=== PATIENT | female | born 1995 | race Hispanic/Latino ===

== ENCOUNTER 2018-04-08 08:43 | Emergency (ER) | payer OTHER, SELFPAY ==
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
--- NOTE | 2018-04-08 10:01 | RAD REPORT ---
EXAM DESCRIPTION: US - Abdomen Exam Limited - 04/08/2018 9:07 am CLINICAL HISTORY: Abdominal pain. COMPARISON: None. FINDINGS: Limited examination was performed to assess for ascites. No ascites is seen within the abdomen/pelvis IMPRESSION: No ascites is seen. This does not exclude an intraabdominal/pelvic injury
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
== END 2018-04-08 10:02 | disposition home or self-care (01) ==
LOC: ER 08:43
DX: O26.899 Other specified pregnancy related conditions, unspecified trimester (principal); S39.91XA Unspecified injury of abdomen, initial encounter; V49.40XA Driver injured in collision with unspecified motor vehicles in traffic accident, initial encounter; Z3A.00 Weeks of gestation of pregnancy not specified
CPT/HCPCS: 76705; 76815; 99284

== ENCOUNTER 2018-06-16 04:34 | Inpatient (IN) | payer OTHER, SELFPAY ==
--- OUTSIDE RECORDS SUMMARY | 2018-06-16 04:36 | XMS REPORT ---
:1995 [facility] Address [address] [place] [address] [address] [place] [address] Care Team Providers Name Role Phone Unavailable Unavailable Unavailable Problems This patient has no known problems. Allergies, Adverse Reactions, Alerts This patient has no known allergies or adverse reactions. Medications This patient has no known medications.
[2018-06-16] MEDS ORDERED: METHYLERGONOVINE 0.2MG/ML AMP IM PRN (05:17)
[2018-06-16] MEDS ORDERED: CARBOPROST TROME 250 MCG/ML IM PRN (05:17)
[2018-06-16] MEDS ORDERED: MEPERIDINE HCL 25 MG/0.5 ML IV PRN (05:17)
[2018-06-16] MEDS ORDERED: PROMETHAZINE 25 MG/ML VIAL IM PRN (05:17)
[2018-06-16] MEDS ORDERED: Ringers Lactate 1,000 ML IV PRN (05:17)
[2018-06-16] MEDS ORDERED: BUTORPHANOL 1 MG/ML INJ IV PRN (05:17)
[2018-06-16] MEDS ORDERED: MIDAZOLAM HCL 2 MG/2 ML INJ IV PRN (05:17)
[2018-06-16 05:37] LABS: RPR Titer ND
[2018-06-16 05:47] VITALS: BMI 24.7
[2018-06-16] MEDS ORDERED: OXYTOCIN/LR 20 UNIT/1,000 ML BAG IV SCH ×2 (06:00→08:00)
[2018-06-16] MEDS ORDERED: Ringers Lactate 1,000 ML IV SCH (06:00)
[2018-06-16] MEDS ORDERED: LIDOCAINE 1% MPF 30 ML VIAL ONE (06:01)
[2018-06-16 06:37] LABS: Absolute Lymphocytes (CBC) 3.1 K/uL (0.7-4.9); Absolute Monocytes 0.6 K/uL (0.1-1.3); Absolute Neutrophil 4.7 K/uL (1.8-8.0); Basophils % 0.9 % (0-1.3); Hematocrit 37.5 % (36.0-45.0); MPV 13.8 fL (7.6-11.3); Monocytes % 6.9 % (3.3-12.3); RBC Red Blood Cell Count 4.04 M/uL (3.86-4.86)
[2018-06-16 06:38] LABS: Blood Morphology Comment NOT SEEN (NOT SEEN); Platelet Estimate ADEQ; Platelets, Giant NOTED; Urine White Blood Cell Casts OK
[2018-06-16] MEDS ORDERED: DOCUSATE NA/SENNA CONC 1 TAB PO PRN (07:36)
[2018-06-16] MEDS ORDERED: ACETAMINOPHEN 500 MG TAB PO PRN (07:36)
[2018-06-16] MEDS ORDERED: DIPHENHYDRAMINE 25 MG TAB/CAP PO PRN (07:36)
[2018-06-16] MEDS ORDERED: Oxycodone HCl/Acetaminophen 1 TAB TAB PO PRN ×2 (07:36)
[2018-06-16] MEDS ORDERED: BISACODYL 10 MG RECTAL SUPP RECT PRN (07:36)
[2018-06-16] MEDS: IBUPROFEN 200 MG TAB PO PRN (08:37)
[2018-06-16] MEDS: METHYLERGONOVINE 0.2 MG TAB PO PRN ×3 (11:44→19:40)
--- NOTE | 2018-06-16 11:53 | PREOPHP ---
Date of Admission: 06/16/2018 A 23-year-old, 2, para 0, 39 weeks and 1 to 2 days, followed antepartum apparently at [facility] wi thout complications. This is according to the patient. She is a drop-in here. We have no records, but [facility] does state that strep test was negative and HIV test is negative. She came in cont racting regularly at 5 cm. The patient is now 9 cm. I think she has experienced spontaneous rupture of membranes as there is no amniotic sac that I can tell. She has a bloody show. The baby looks go od on the monitor. I think we are very close to the delivery. She is starting to feel pelvic pressu re. The H and P is basically clear. Vital signs are all stable. Family History: Negative. Allergies: SHE IS NOT ALLERGIC TO ANYTHING. Physical Examination: HEENT: Clear. Pupils are equal, round, and reactive to light and accommodation. Conjunctivae well perfused. No oral, lingual, or buccal lesions. Chest and lungs: Grossly clear. No auscultation. Breasts: Not examined. Abdomen: Term size. Extremities: Clear without edema, cyanosis, or clubbing. Pelvic exam: 9 cm, 100% effaced, +1 station. NBC/MODL Voice ID: [id number]
[2018-06-17 00:41] LABS: RPR (Rapid Plasma Reagin) NON-REACT (NON-REACT)
[2018-06-17] MEDS: METHYLERGONOVINE 0.2 MG TAB PO PRN ×3 (02:43→10:47)
[2018-06-17] MEDS ORDERED: PHENOBARBITAL 32.4 MG TABLET PO ONE (07:21)
[2018-06-17] MEDS ORDERED: PHENOBARBITAL 32.4 MG TABLET PO SCH (08:00)
[2018-06-17 08:04] LABS: Urine Appearance CLEAR; Urine Bilirubin NEGATIVE (NEG); Urine Blood NEGATIVE (NEG); Urine Color YELLOW; Urine Glucose NEGATIVE (NEG); Urine Protein NEGATIVE (NEG)
[2018-06-17] MEDS: IBUPROFEN 200 MG TAB PO PRN (08:17)
[2018-06-17 08:31] LABS: Urine Bacteria NONE SEEN /HPF (<20); Urine Culture Reflex Order NOT NEEDED
[2018-06-17 08:32] LABS: Urine RBC <5 /HPF (NONE SEEN)
--- NOTE | 2018-06-17 08:42 | OP ---
Surgeon: Petar Le MD A 23-year-old 3, para 0 at 39 weeks 1 day, followed antepartum apparently without complicatio ns at [facility] clinic, dropped into our institution in active labor. Noted to be 5 cm, bulging membranes on admission. It has been determined, she is HIV negative and beta strep negative. The patient rec eived 1 mg of Stadol, 25 mg Phenergan IM, otherwise used Lamaze breathing techniques, went rapidly to complete second stage for 20 minutes. Spontaneous vaginal delivery of an estimated 8-pound plus mal e . Apgars 9 and 9. No episiotomy. No laceration. Schultze delivery of the placenta, which was inspected and noted to be intact and normal. Mild uterine hypotonus, 0.2 mg of Methergine IM, as well as IV drip Pitocin and massage. Estimated blood loss 425. The patient tolerated all procedure s well. Final Diagnoses: Term intrauterine 39 weeks 1 day. Drop-in from [facility], vaginal delivery mi ld uterine hypotonus. Other labs pending. LANEC/MODL Voice ID: [id number] Report ID: [id number]
--- NOTE | 2018-06-17 12:25 | PN ---
Doing well other than the fact that her blood pressures are increasing. She has pretibial edema and brisk reflexes. I am going to start her on phenobarbital. Full discussion with the patie michelle. She knows this goes through the breast milk. I will keep her here until early afternoon. We wi ll get blood pressures every 2 hours and decide whether we need any medicines for her blood pressure. Right now, the patient has no [employer] symptoms, but was concerned about her swelling. She is informed that she can come to see me later this week or should follow up at [facility] for routine followup. She kn ows to report any fever of 100 degrees or more severe pain, heavy bleeding, or any other type of abno rmalities, but as I said, we will keep her here until early afternoon at least to monitor the situati on as far as the possibility of preeclampsia. JUANCARLOS/NORMA Voice ID: [id number] Report ID: [id number]
[2018-06-17 14:01] VITALS: BP 133/80; TEMP 98.2
[2018-06-19 03:12] LABS: HBsAG Nonreactive (Nonreactive)
== END 2018-06-17 15:25 | disposition home or self-care (01) | DRG 807 ==
LOC: L&D 04:34 → 2ND-WC 05:00
PROVIDERS: ADMIT Specialist; ATTEND Specialist
PROC: 10E0XZZ Delivery of Products of Conception, External Approach (ICD-10-PCS; principal; 2018-06-16)
DX: O62.2 Other uterine inertia (principal); Z37.0 Single live birth; Z3A.39 39 weeks gestation of pregnancy; O90.89 Other complications of the puerperium, not elsewhere classified; R03.0 Elevated blood-pressure reading, without diagnosis of hypertension
CPT/HCPCS: 36415; 81001; 85025; 86592; 86900; 86901; 87340; G0433; J0595; J2175; J2210; J2250; J2550; J2590